=== PATIENT | male | born 1945 | race Caucasian/White ===

== ENCOUNTER 2016-11-15 16:22 | Inpatient (IN) | payer OTHER, MEDICARE ==
[~2016-11-15] VITALS: Ht 182.9 cm; Wt 94.5 kg
[2016-11-20] MEDS ORDERED: POVIDONE IODINE 5% (ANTISEPSIS KIT) 4 APPLICATIONS EACH NARE PRN (06:45)
[2016-11-20] MEDS ORDERED: DEXAMETHASONE SOD PHOS 20 MG/5 ML VIAL IV PUSH SCH (06:45)
[2016-11-20] MEDS ORDERED: POVIDONE IODINE 7.5% SCRUB 118 ML BOTTLE TOPICAL SCH (06:45)
[2016-11-20] MEDS ORDERED: LACTATED RINGER'S 1000 ML IV PRN (06:45)
[2016-11-20] MEDS ORDERED: METOPROLOL TARTRATE 25 MG TAB PO PRN (06:45)
[2016-11-20] MEDS ORDERED: INSULIN HUMAN REGULAR 1,000 UNITS/10 ML VIAL SQ PRN (06:45)
[2016-11-20] MEDS ORDERED: CHLORHEXIDINE GLUCONATE 4% SOLN 120 ML BTL TOPICAL SCH (06:45)
[2016-11-20] MEDS ORDERED: ceFAZolin 2 GM PREMIX 50 ML IV SCH (06:45)
[2016-11-20] MEDS ORDERED: CHLORHEXIDINE GLUCONATE 2 % 1 PACK (2 CLOTHS) TOPICAL PRN (06:45)
[2016-11-20] MEDS ORDERED: SODIUM CHLORID 0.9% 500 ML IV PRN (06:45)
[2016-11-20] MEDS ORDERED: ZOLPIDEM TARTRATE 5 MG TAB PO PRN (07:00)
[2016-11-20] MEDS ORDERED: Post-op Orders (for Pharmacy) MISC XX ONE (07:00)
[2016-11-20] MEDS ORDERED: MORPHINE SULFATE 4 MG/ML INJ IV PUSH PRN (07:00)
[2016-11-20] MEDS ORDERED: ONDANSETRON HCL 4 MG/2 ML VIAL IVP PRN (07:00)
[2016-11-20] MEDS ORDERED: BISACODYL 10 MG SUPP RECTAL PRN (07:00)
[2016-11-20] MEDS ORDERED: ALUMINUM/MAGNESIUM/SIMETH 30 ML CUP PO PRN (07:00)
[2016-11-20] MEDS ORDERED: NALOXONE HCL 0.4 MG/ML AMP IV PRN (07:00)
[2016-11-20] MEDS ORDERED: diphenhydrAMINE HCL 50 MG/ML VIAL IV PRN (07:00)
[2016-11-20] MEDS ORDERED: HYDR-3288 PO (07:02)
[2016-11-20] MEDS ORDERED: ASPI81CH37 CHEW (07:02)
[2016-11-20 07:56] VITALS: BP 141/80; PULSE 69; RESP 18; TEMP 98.5; O2SAT 96
[2016-11-20] MEDS ORDERED: SODIUM CHLORIDE 0.9% FLUSH 10 ML FLUSH IV FLUSH PRN (08:00)
[2016-11-20] MEDS ORDERED: FENO145T2 PO (08:17)
[2016-11-20] MEDS ORDERED: BUPR75TA PO (08:17)
[2016-11-20] MEDS ORDERED: NIAC500T5 PO (08:17)
[2016-11-20] MEDS ORDERED: ASPI325T PO (08:17)
[2016-11-20] MEDS ORDERED: PANT40TA3 PO (08:17)
[2016-11-20] MEDS ORDERED: IPRAAER INH (08:17)
[2016-11-20] MEDS ORDERED: LOSA25TA PO (08:17)
[2016-11-20] MEDS ORDERED: ATOR40TA16 PO (08:17)
[2016-11-20] MEDS ORDERED: METO50TA PO (08:17)
[2016-11-20] MEDS ORDERED: GABA100C4 PO (08:17)
[2016-11-20] MEDS ORDERED: CYCL5TAB PO (08:17)
[2016-11-20] MEDS ORDERED: NITR0.4S SL (08:17)
[2016-11-20] MEDS ORDERED: GENTAMICIN SULFATE 80 MG/2 ML VIAL ONE (08:54)
[2016-11-20] MEDS: SODIUM CHLORIDE 0.9% FLUSH 10 ML FLUSH IV FLUSH SCH ×2 (09:00→21:31)
[2016-11-20] MEDS ORDERED: ACETAMINOPHEN 1000 MG/100 ML VIAL IV ONE (09:21)
[2016-11-20] MEDS ORDERED: MIDAZOLAM HCL 2 MG/2 ML VIAL ONE (09:21)
[2016-11-20] MEDS ORDERED: FAMOTIDINE 20 MG/2 ML VIAL ONE (09:22)
[2016-11-20] MEDS ORDERED: TRANEXAMIC PERI-ARTICULAR 3,000 MG/NS 100 ML P-ARTICULR SCH ×2 (10:00)
[2016-11-20] MEDS ORDERED: ROPIVACAINE 0.5% PF INJ 30 ML VIAL NERV BLOCK ONE (10:27)
[2016-11-20] MEDS ORDERED: VANCOMYCIN HCL 1000 MG VIAL ONE (10:42)
[2016-11-20] MEDS ORDERED: ONDANSETRON HCL 4 MG/2 ML VIAL IV PUSH ONE (12:00)
[2016-11-20] MEDS ORDERED: LACTATED RINGER'S 1000 ML INJ 1,000 ML IV ONE (12:00)
[2016-11-20] MEDS ORDERED: PROPOFOL 200 MG/20 ML AMP IV ONE (12:00)
[2016-11-20] MEDS ORDERED: PHENYLEPH/NS 1000 MCG/10 ML SYR IV ONE (12:00)
[2016-11-20] MEDS ORDERED: NEOSTIGMINE 3 MG/3 ML SYR IV ONE (12:00)
[2016-11-20] MEDS ORDERED: DO NOT ADM ANY ANTICOAGULANT DRUGS PRN (13:07)
[2016-11-20] MEDS: SODIUM CHLOR 0.9% 1000 ML INJ 1,000 ML IV SCH ×2 (13:15→18:00)
[2016-11-20] MEDS ORDERED: fentaNYL CITRATE 250 MCG/5 ML AMP ONE (13:24)
[2016-11-20] MEDS ORDERED: *morphine SULFATE 8 MG/ML PERIprocedure ONLY ONE (14:10)
--- NOTE | 2016-11-20 15:01 | RADRPT ---
EXAM DATE/TIME: 11/20/2016 13:32 [place] COMPARISON: No previous studies available for comparison. INDICATIONS : Post op right shoulder surgery. MEDICAL HISTORY : None. SURGICAL HISTORY : None. ENCOUNTER: Initial ACUITY: 1 day PAIN SCORE: 10/10 LOCATION: Right shoulder FINDINGS: A two-view examination right shoulder was obtained and demonstrates the patient is status post right shoulder arthroplasty. The alignment is anatomic. There is overlying soft tissue swelling. CONCLUSION: Expected postoperative change status post arthroplasty. Robby Calderon MD on November 20, 2016 at 14:59 Board Certified Radiologist. This report was verified electronically.
[2016-11-20 16:05] VITALS: BP 124/83; PULSE 76; RESP 18; TEMP 95.4; O2SAT 96
--- NOTE | 2016-11-20 16:36 | PD.CONS ---
HPI Service [facility] Consult Requested By Orthopedist Dr. David Castle Reason for Consult Assist with Medical management Primary Care Physician Dr. 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 Tin Hernandez. Patient seen and examined today. Reports continues to have pain on the right shoulder. Rated 8/10, sharp, constant, aggravated by movement, relieved with pain medication given to him. Otherwise, denies pain and discomfort. Denies SOB/ dyspnea. Denies chest pain, palpitations, headaches, dizziness. Denies fevers, chills, n/v/d. Denies hematuria, dysuria. Review of Systems Except as stated in HPI: all other systems reviewed are Neg Past Family Social History Allergies: Coded Allergies: Ethyl Alcohol (Verified Allergy, Severe, 09/22/04) Ketorolac (Verified Allergy, Severe, 09/22/04) Contrast Media (Verified Allergy, Unknown, 11/20/16) Past Medical History CAD Carotid stenosis PVD GERD HTN HLD Restless leg Past Surgical History CABG 2 Right carotid endarterectomy Left BKA secondary to PVD Reported Medications Reported Meds & Active Scripts Active Aspirin Low Dose (Aspirin) 81 Mg Chew 81 Mg CHEW BID [place] (Hydrocodone-Acetaminophen) 7.5-325 mg Tab 1-2 Tab PO Q6H PRN Reported Combivent Respimat Inh (Ipratropium-Albuterol Inh) 20-100 Nursing Home/Act Aero 1 Puff INH QID PRN Nitrostat SL (Nitroglycerin) 0.4 Mg Subl 0.4 Mg SL DIRECTED PRN 1 tablet under the tongue as needed for chest pain. Repeat every 5 minutes for a total of 3 DOSES or call 911 if NO relief. Pantoprazole (Pantoprazole Sodium) 40 Mg Tab 40 Mg PO DAILY Fenofibrate 145 Mg Tab 145 Mg PO DAILY Losartan (Losartan Potassium) 25 Mg Tab 25 Mg PO DAILY Bupropion HCl 75 Mg Tab 75 Mg PO BID Flexeril (Cyclobenzaprine HCl) 5 Mg Tab 5 Mg PO HS Metoprolol Tartrate 50 Mg Tab 50 Mg PO BID Gabapentin 100 Mg Cap 100 Mg PO BID Niacin 500 Mg Tab 500 Mg PO DAILY Aspirin 325 Mg Tab 325 Mg PO DAILY Atorvastatin (Atorvastatin Calcium) 40 Mg Tab 40 Mg PO HS Active Ordered Medications Current Medications Medications (Trade) Dose Ordered Sig/Milka Route Start Time Stop Time Status Last Admin Lactated Ringer's 1,000 ml @ 30 mls/hr Q24H PRN IV 11/20/16 06:45 11/23/16 06:44 11/20/16 08:10 (NS 500 ml Inj) 500 ml @ 30 mls/hr [id number] PRN IV 11/20/16 06:45 11/23/16 06:44 (Betadine 7.5% Scrub) 1 applic ONCE TOPICAL 11/20/16 06:45 11/23/16 06:44 11/20/16 07:45 Chlorhexidine Gluconate 1 applic 1 applic ONCE TOPICAL 11/20/16 06:45 11/23/16 06:44 (Cyklokapron Inj/ NS Inj) 130 ml @ 260 mls/hr ONCE P-ARTICULR 11/20/16 10:00 11/20/16 21:00 11/20/16 11:02 Dexamethasone Sodium Phosphate 10 mg 10 mg ONCE IV PUSH 11/20/16 06:45 11/20/16 21:00 11/20/16 08:00 (NS 1000 ml Inj) 1,000 ml @ 100 mls/hr Q10H IV 11/20/16 08:00 11/20/16 13:15 (NS Flush) 2 ml UNSCH PRN IV FLUSH 11/20/16 08:00 Sodium Chloride 2 ml 2 ml BID IV FLUSH 11/20/16 09:00 (Ancef Inj/NS Inj) 100 ml @ 200 mls/hr Q6H IV 11/20/16 15:00 11/21/16 03:29 11/20/16 14:28 (Lovenox Inj) 30 mg Q24H SQ 11/21/16 01:00 (Morphine Inj) 3 mg Q3H PRN IV PUSH 11/20/16 07:00 ([place] 7.5-325 Mg) 1 tab Q4H PRN PO 11/20/16 07:00 ([place] 7.5-325 Mg) 2 tab Q4H PRN PO 11/20/16 07:00 (Theragran M Tab) 1 tab BID PO 11/21/16 21:00 01/20/17 20:59 (Zofran Inj) 4 mg Q6H PRN IVP 11/20/16 07:00 (Colace) 100 mg BID PO 11/21/16 21:00 (Mag-Al Plus Susp Liq) 30 ml Q6H PRN PO 11/20/16 07:00 (Ambien) 5 mg HS PRN PO 11/20/16 07:00 (Dulcolax Supp) 10 mg DAILY PRN RECTAL 11/20/16 07:00 (Narcan Inj) 0.4 mg UNSCH PRN IV 11/20/16 07:00 (Benadryl Inj) 25 mg Q6H PRN IV 11/20/16 07:00 Miscellaneous Information ALL NURSING DEPARTME... UNSCH PRN .XX 11/20/16 13:07 11/21/16 13:06 Family History Dad has permanent pacemaker Social History Denies alcohol use Former smoker, quit about 13-14 years ago, smoked for 50 years, 10 years of 50 years 4 packs per day Denies any illicit drug use Physical Exam Vital Signs Vital Signs Date Time Temp Pulse Resp B/P Pulse Ox O2 Delivery O2 Flow Rate FiO2 11/20/16 15:30 98.1 72 14 114/63 97 Nasal Cannula 2 11/20/16 15:15 75 14 109/61 97 Nasal Cannula 2 11/20/16 15:00 71 14 100/57 94 Nasal Cannula 2 11/20/16 14:45 71 14 101/56 94 Nasal Cannula 2 11/20/16 14:30 70 14 94/54 94 Nasal Cannula 2 11/20/16 14:15 69 14 87/53 94 Nasal Cannula 2 11/20/16 14:00 73 14 92/55 94 Nasal Cannula 2 11/20/16 13:45 72 14 89/55 94 Nasal Cannula 2 11/20/16 13:30 74 14 93/52 94 Nasal Cannula 4 11/20/16 13:15 71 14 89/50 94 Nasal Cannula 4 11/20/16 13:11 97.4 78 14 90/65 95 Nasal Cannula 4 11/20/16 07:56 98.5 69 18 141/80 96 Physical Exam GENERAL: This is a well-nourished, well-developed patient, in no apparent distress. SKIN: No rashes, ecchymoses or lesions. Warm and dry. HEAD: Atraumatic. Normocephalic. No temporal or scalp tenderness. EYES: Pupils equal round and reactive. No scleral icterus. No injection or drainage. ENT: Nose without bleeding. Throat without erythema. Uvula midline. Airway patent. NECK: Trachea midline. No JVD or lymphadenopathy. Supple, nontender, no meningeal signs. CARDIOVASCULAR: Regular rate and rhythm without murmurs, gallops, or rubs. RESPIRATORY: Clear to auscultation. Breath sounds equal bilaterally. No wheezes , rales, or rhonchi. GASTROINTESTINAL: Abdomen soft, non-tender, nondistended. Bowel sounds hypoactive MUSCULOSKELETAL: Extremities without clubbing, cyanosis, or edema. Left BKA, Emily status at the bedside. Right shoulder incision site clean dry and intact. NEUROLOGICAL: Awake and alert. Oriented to place, self, time. Motor and sensory grossly within normal limits. Normal speech. Laboratory Laboratory Tests Test 11/20/16 07:50 Blood Type A POSITIVE Antibody Screen NEGATIVE Blood Bank Comment Imaging Last Impressions Shoulder X-Ray 11/20/16 0000 Signed Impressions: Service Date/Time: Sunday, November 20, 2016 13:32 - CONCLUSION: Expected postoperative change status post arthroplasty. 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 Tin Hernandez. Status post right shoulder arthroplasty - Pain management - OT/PT managed by primary team CAD, CABG x2 HTN - Start home medication aspirin 81 mg daily when DC - not on plavix - Continue home medication metoprolol 50 mg twice a day, losartan 25 mg daily - Hold parameters, in PACU patient had an episode of low BP possibly secondary to anesthesia use. As per review records, patient is in the 140s to 150s as baseline, decrease BP with metoprolol use to 107 - Monitor BP trend HLD - Restart atorvastatin 40mg daily, niacin 500 mg, gemfibrozil 600 mg PVD, neuropathy - Gabapentin DVT prop Lovenox 30 mg daily Thank you for this consultation. We will follow patient with you. Written by Madi Fierro, acting as scribe for Dr. Lopez on 11/20/16 at 15:38. This note was transcribed by rex HOLLINS. I, Dr. Gloria Lopez personally performed the history, physical exam, and medical decision making; and confirmed the accuracy of the information in the transcribed note. Authenticated by Dr. Gloria Lopez on 11/20/16 at 15:38. Code Status Full code Discussed Condition With Patient, nursing Madi Douglas November 20, 2016 16:36 Gloria Lopez MD November 20, 2016 18:17
[2016-11-20] MEDS: ACETAMINOPHEN/HYDROcodone 325 MG/7.5 MG TAB PO PRN ×2 (17:18→21:32)
[2016-11-20 17:29] VITALS: O2SAT 96
[2016-11-20] MEDS ORDERED: IPRATROPIUM ALBUTEROL INH PRN (18:00)
[2016-11-20 19:59] VITALS: BP 119/75; PULSE 90; RESP 16; TEMP 97.2; O2SAT 93
[2016-11-20] MEDS: ATORVASTATIN 40 MG TAB PO SCH (21:30)
[2016-11-20] MEDS: METOPROLOL TARTRATE 50 MG TAB PO SCH (21:30)
[2016-11-20] MEDS: GABAPENTIN 100 MG CAP PO SCH (21:30)
[2016-11-20] MEDS: buPROPion HCL 75 MG TAB PO SCH (21:31)
[2016-11-21] VITALS (7 sets, daily range): BP systolic 93–130; BP diastolic 55–81; PULSE 71–91; RESP 16–18; TEMP 95.8–98.2; O2SAT 92–94
[2016-11-21] MEDS: ENOXAPARIN SODIUM 30 MG/0.3 ML SYRINGE SQ SCH (01:55)
[2016-11-21] MEDS: ACETAMINOPHEN/HYDROcodone 325 MG/7.5 MG TAB PO PRN ×4 (02:01→20:14)
[2016-11-21] MEDS: SODIUM CHLOR 0.9% 1000 ML INJ 1,000 ML IV SCH ×3 (04:00→21:43)
[2016-11-21 07:49] LABS: HEMATOCRIT 44.3 % (39.0-51.0); MEAN CELL VOLUME 88.7 FL (80.0-100.0); MEAN CORPUSCULAR HEMOGLOBIN 28.5 PG (27.0-34.0); MEAN CORPUSCULAR HGB CONC 32.2 % (32.0-36.0); PLATELET COUNT 214 TH/MM3 (150-450); RED BLOOD COUNT 4.99 MIL/MM3 (4.50-5.90); RED CELL DISTRIBUTION WIDTH 13.2 % (11.6-17.2); REVIEW FLAG FINAL; WHITE BLOOD COUNT 17.4 TH/MM3 (4.0-11.0)
[2016-11-21 08:20] LABS: BICARBONATE 23.1 MEQ/L (21.0-32.0); POTASSIUM 4.5 MEQ/L (3.5-5.1)
[2016-11-21] MEDS: SODIUM CHLORIDE 0.9% FLUSH 10 ML FLUSH IV FLUSH SCH ×2 (08:42→20:15)
[2016-11-21] MEDS: PANTOPRAZOLE SOD 40 MG DELAYED RELEASE TAB PO SCH (08:42)
[2016-11-21] MEDS: GABAPENTIN 100 MG CAP PO SCH ×2 (08:42→20:13)
[2016-11-21] MEDS: FENOFIBRATE 145 MG TAB PO SCH (08:42)
[2016-11-21] MEDS: buPROPion HCL 75 MG TAB PO SCH ×2 (08:43→20:13)
[2016-11-21] MEDS: METOPROLOL TARTRATE 50 MG TAB PO SCH ×2 (08:45→20:14)
[2016-11-21] MEDS ORDERED: LOSARTAN 25 MG TAB PO SCH (09:00)
--- NOTE | 2016-11-21 09:09 | PD.ORT.PN ---
Subjective Post Op Day #: 1 Subjective Remarks painful shoulder Objective Vitals Vital Signs Date Time Temp Pulse Resp B/P Pulse Ox O2 Delivery O2 Flow Rate FiO2 11/21/16 08:54 93 21 11/21/16 04:18 97.7 86 16 130/81 92 11/21/16 00:00 98.2 91 17 108/70 94 11/20/16 19:59 97.2 90 16 119/75 93 11/20/16 17:29 96 21 11/20/16 16:05 95.4 76 18 124/83 96 11/20/16 15:30 98.1 72 14 114/63 97 Nasal Cannula 2 11/20/16 15:15 75 14 109/61 97 Nasal Cannula 2 11/20/16 15:00 71 14 100/57 94 Nasal Cannula 2 11/20/16 14:45 71 14 101/56 94 Nasal Cannula 2 11/20/16 14:30 70 14 94/54 94 Nasal Cannula 2 11/20/16 14:15 69 14 87/53 94 Nasal Cannula 2 11/20/16 14:00 73 14 92/55 94 Nasal Cannula 2 11/20/16 13:45 72 14 89/55 94 Nasal Cannula 2 11/20/16 13:30 74 14 93/52 94 Nasal Cannula 4 11/20/16 13:15 71 14 89/50 94 Nasal Cannula 4 11/20/16 13:11 97.4 78 14 90/65 95 Nasal Cannula 4 I/O 11/20/16 11/20/16 11/20/16 11/21/16 11/21/16 11/21/16 07:00 15:00 23:00 07:00 15:00 23:00 Intake Total 800 ml 480 ml 480 ml Output Total 200 ml 500 ml 450 ml Balance 600 ml -20 ml 30 ml Intake Oral 480 ml 480 ml Other 800 ml Output Urine Total 500 ml 450 ml Estimated Blood Loss 200 ml Result Diagram: 11/21/16 0711 11/21/16 0711 Objective Remarks in bed, nad dressing c/d/i sling in place nvi subjecting numbness in thumb. 2+ radial pulse Assessment & Plan Ortho Post Op Day #: 1 Problem List: Assessment and Plan s/p R TSA daily dressing changes lovenox ROM - no external rotation PT d/c planning home with [facility] and pt f/up dr. jaeger 2 weeks Tin Daniels November 21, 2016 09:09
--- NOTE | 2016-11-21 09:11 | HHI.DCPOC ---
Discharge Care Plan Diagnosis: (1) Primary localized osteoarthrosis of shoulder region (2) Status post right shoulder hemiarthroplasty Your Health Problems Are: Difficulty with ADL Goals to Promote Your Health * To prevent worsening of your condition and complications * To maintain your health at the optimal level Directions to Meet Your Goals Take your medications as prescribed Follow your dietary instruction Follow activity as directed Keep your appointments as scheduled Take your immunizations and boosters as scheduled If your symptoms worsen call your PCP, if no PCP go to Urgent Care Center or Emergency Room Smoking is Dangerous to Your Health. Avoid second hand smoke Call the 24-hour hour crisis hotline for domestic abuse at Tin Daniels November 21, 2016 09:11
--- NOTE | 2016-11-21 09:12 | HHI.FF ---
Face to Face Verification Diagnosis: (1) Status post right shoulder hemiarthroplasty (2) Primary localized osteoarthrosis of shoulder region Physical Therapy Safety evaluation Occupational Therapy Right UE Weight Bearing: Non WB Right UE Range of Motion: Active Assistive ROM Nursing RN: 3 days/week x 2 weeks Nursing: Dressing changes Dressing Changes: Daily dressing change I have seen patient Min Wilks on 11/21/16. My clinical findings support the need for the requested home health care services because: Limited ability to care for self High risk of falls I certify that my clinical findings support that this patient is homebound because: Post-op weakness Unsteady gait/balance Tin Daniels November 21, 2016 09:12
--- NOTE | 2016-11-21 09:15 | HHI.PR ---
Subjective Remarks Has some shoulder pain, however pain is controlled by medications. No fever or chills. No nausea or vomiting. Satting well on room air. Objective Vitals Vital Signs Date Time Temp Pulse Resp B/P Pulse Ox O2 Delivery O2 Flow Rate FiO2 11/21/16 08:54 93 21 11/21/16 04:18 97.7 86 16 130/81 92 11/21/16 00:00 98.2 91 17 108/70 94 11/20/16 19:59 97.2 90 16 119/75 93 11/20/16 17:29 96 21 11/20/16 16:05 95.4 76 18 124/83 96 11/20/16 15:30 98.1 72 14 114/63 97 Nasal Cannula 2 11/20/16 15:15 75 14 109/61 97 Nasal Cannula 2 11/20/16 15:00 71 14 100/57 94 Nasal Cannula 2 11/20/16 14:45 71 14 101/56 94 Nasal Cannula 2 11/20/16 14:30 70 14 94/54 94 Nasal Cannula 2 11/20/16 14:15 69 14 87/53 94 Nasal Cannula 2 11/20/16 14:00 73 14 92/55 94 Nasal Cannula 2 11/20/16 13:45 72 14 89/55 94 Nasal Cannula 2 11/20/16 13:30 74 14 93/52 94 Nasal Cannula 4 11/20/16 13:15 71 14 89/50 94 Nasal Cannula 4 11/20/16 13:11 97.4 78 14 90/65 95 Nasal Cannula 4 I/O 11/20/16 11/20/16 11/20/16 11/21/16 11/21/16 11/21/16 06:59 14:59 22:59 06:59 14:59 22:59 Intake Total 800 ml 480 ml 480 ml Output Total 200 ml 500 ml 450 ml Balance 600 ml -20 ml 30 ml Intake Oral 480 ml 480 ml Other 800 ml Output Urine Total 500 ml 450 ml Estimated Blood Loss 200 ml Result Diagram: 11/21/16 0711 11/21/16 0711 Imaging Last Impressions Shoulder X-Ray 11/20/16 0000 Signed Impressions: Service Date/Time: Sunday, November 20, 2016 13:32 - CONCLUSION: Expected postoperative change status post arthroplasty. Robby Calderon MD Objective Remarks GENERAL: This is a well-nourished, well-developed patient, in no apparent distress. SKIN: No rashes, ecchymoses or lesions. Warm and dry. HEAD: Atraumatic. Normocephalic. No temporal or scalp tenderness. EYES: Pupils equal round and reactive. No scleral icterus. No injection or drainage. ENT: Nose without bleeding. Throat without erythema. Uvula midline. Airway patent. NECK: Trachea midline. No JVD or lymphadenopathy. Supple, nontender, no meningeal signs. CARDIOVASCULAR: Regular rate and rhythm without murmurs, gallops, or rubs. RESPIRATORY: Clear to auscultation. Breath sounds equal bilaterally. No wheezes , rales, or rhonchi. GASTROINTESTINAL: Abdomen soft, non-tender, nondistended. Bowel sounds hypoactive MUSCULOSKELETAL: Extremities without clubbing, cyanosis, or edema. Left BKA, Emily status at the bedside. Right shoulder incision site clean dry and intact. NEUROLOGICAL: Awake and alert. Oriented to place, self, time. Motor and sensory grossly within normal limits. Normal speech. 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 Tin Hernandez. Status post right shoulder arthroplasty - Pain management - OT/PT managed by primary team Dehydration. HE Cr 1.4, however unknown baseline kidney indices. Start IVF. Hold losartan. Monitor kidney indices. Add hydralazine PRN if high BP. Leukocytosis. Likely 2/2 dehydration. On IVF. No fevers , no signs of infection. CAD, CABG x2 HTN - Start home medication aspirin 81 mg daily when DC - not on plavix - Continue home medication metoprolol 50 mg twice a day, losartan 25 mg daily - Hold parameters, in PACU patient had an episode of low BP possibly secondary to anesthesia use. As per review records, patient is in the 140s to 150s as baseline, decrease BP with metoprolol use to 107 - Monitor BP trend HLD - Restart atorvastatin 40mg daily, niacin 500 mg, gemfibrozil 600 mg PVD, neuropathy - Gabapentin DVT prop Lovenox 30 mg daily Thank you for this consultation. We will follow patient with you. Code Status Full code Discussed Condition With Patient, nurse Gloria Lopez MD November 21, 2016 09:15
[2016-11-21] MEDS ORDERED: hydrALAZINE HCL 10 MG TAB PO PRN (09:30)
--- NOTE | 2016-11-21 11:49 | MP ---
cc: ELISEO MATTA DATE OF SURGERY: 11/20/2016 PREOPERATIVE DIAGNOSIS: Right shoulder osteoarthritis. POSTOPERATIVE DIAGNOSIS: Right shoulder osteoarthritis. OPERATION: Right total shoulder arthroplasty. SURGEON Dr. Eliseo Matta CENTRAL OFFICE WORKER: GURVINDER Zepeda ANESTHESIA General with an interscalene block. BLOOD LOSS 100 cc COMPLICATIONS None. IMPLANTS: Arthrex size 8 humeral component, size medium glenoid component size 48 x 19 humeral head. JUSTIFICATION: This patient is a 71-year-old male who has increased in breath or pain and developed severe osteoarthritis involving the right shoulder. He has significant pain with activities limitation of motion and pain interferes with activities of daily living. He has failed extensive nonoperative treatment including medications therapy injections, activity modification. X-ray of her shoulder reveal severe osteoarthritis with the joint space narrowing, subchondral sclerosis, subchondral cyst osteophyte formation. He has a history of a remote proximal humerus fracture. The patient was counseled as to the risks, benefits and alternatives to a total shoulder arthroscopy. The risks were discussed and included but are not limited anesthesia, bleeding, infection damage to nerves, blood vessels, fracture-dislocation, blood clots, continued pain, stiffness. The patient had asked appropriate questions which have been answered and he did wish to proceed with surgery, he favored benefits over the risks. The procedure in detail, A written consent was obtained. The patient identified by name, taken to the operating room and placed supine on table. He underwent scalene block anesthesia administered right upper extremity by the anesthesiologist. General anesthesia was administered as well as 2 grams of IV Ancef and 1 gram of IV vancomycin. The patient carefully placed in a beach-chair position. All bony pounds and pressure as well padded. The patient neck was carefully monitored and neutral. The right shoulder right upper extremity prepped and draped using isopropyl alcohol, Hibiclens solution and Chloraprep solution. After a time-out was performed a large incision made over the anterior aspect of right shoulder. The deltopectoral interval was explored the conjoined tendon was retracted medially and the subscapularis tendon was incised near its insertion on the left tuberosity. This was tacked with multiple FiberWire sutures and the osteoarthritic femoral head was dislocated. A rongeur was used to remove multiple osteophytes. A guidewire was used to gain entrance into the intramedullary canal of the humerus. Subsequently a humeral resection guide was placed and the guide was set to remove the humeral cut at 30 degrees of retroversion. An oscillating saw was used to perform the humeral cut. An intramedullary broach handle was then used to gain entrance into the intramedullary canal humerus was followed by sequential broaching up to size eight. Attention was turned to the glenoid where the capsule was released off the anterior and inferior aspects to allow for further exposure a size medium glenoid trial was placed and a center guidepin was placed. A cannulated reamer was then placed over the guide pin. The guide was then placed for the superior and inferior drill holes. Prior to placement of the drill holes. The bladder itself was reamed. The shoulder joint was irrigated with sterile saline pulse lavage antibiotic solution. Subsequently the final glenoid component was then cemented in place with excellent press fit. A size eight humeral component was then press fit and the variable neck angle was locked in place. Trial head combination were evaluated. The final size 48 x 19 head was placed. With this trial of the shoulder be reduced adequately and showed good stability throughout range of motion. Shoulder was then thoroughly irrigated sterile saline solution. There is no significant undue instability upon examination. At this point the subscapularis tendon was repaired with multiple horizontal mattress #2 FiberWire sutures. The subscapularis repair was then further imbricated with a #1 running Vicryl suture. The shoulder was again thoroughly irrigated sterile saline solution and the subcutaneous layer was then closed with 2-0 Vicryl sutures. Skin was closed Dermabond. Sterile dressing applied. The patient placed in sling and swath immobilizer. He tolerated the procedure with no intraoperative complications noted. Mele Daniels physician assistant manager retail was present during the entire procedure to include patient positioning procedure. The medical necessity of a physician assistant manager retail was indicated due to complexity assisted with appropriate manipulation of the arm and also traction of muscle tendon bone neurovascular structure. He assisted with preparation of bone and also implantation of the prosthetic replacement. MD ERLIN Izquierdo/minesh /12:41 PM /10:40 AM
[2016-11-21] MEDS: ATORVASTATIN 40 MG TAB PO SCH (20:11)
[2016-11-21] MEDS: DOCUSATE SODIUM 100 MG CAP PO SCH (20:12)
[2016-11-21] MEDS: MULTIVITAMINS/MINERALS THERAPEUTIC TAB PO SCH (20:12)
[2016-11-21] MEDS ORDERED: NIACIN 500 MG EXTENDED RELEASE TAB PO SCH (21:00)
[2016-11-22] VITALS: BP 105/66; PULSE 81; RESP 16; TEMP 97.1; O2SAT 94
[2016-11-22] MEDS: ENOXAPARIN SODIUM 30 MG/0.3 ML SYRINGE SQ SCH (00:04)
[2016-11-22] MEDS: ACETAMINOPHEN/HYDROcodone 325 MG/7.5 MG TAB PO PRN ×3 (00:04→09:21)
[2016-11-22 06:42] LABS: HEMATOCRIT 40.6 % (39.0-51.0); MEAN CELL VOLUME 87.5 FL (80.0-100.0); MEAN CORPUSCULAR HEMOGLOBIN 29.5 PG (27.0-34.0); MEAN CORPUSCULAR HGB CONC 33.8 % (32.0-36.0); PLATELET COUNT 191 TH/MM3 (150-450); RED BLOOD COUNT 4.64 MIL/MM3 (4.50-5.90); RED CELL DISTRIBUTION WIDTH 13.8 % (11.6-17.2); REVIEW FLAG FINAL; WHITE BLOOD COUNT 9.7 TH/MM3 (4.0-11.0)
[2016-11-22 06:54] LABS: BICARBONATE 24.2 MEQ/L (21.0-32.0); POTASSIUM 4.3 MEQ/L (3.5-5.1)
[2016-11-22 08:00] VITALS: BP 144/78; PULSE 78; RESP 18; TEMP 96; O2SAT 92
--- NOTE | 2016-11-22 08:40 | PD.ORT.PN ---
Subjective Post Op Day #: 2 Subjective Remarks painful shoulder. controlled with pain meds. Objective Vitals Vital Signs Date Time Temp Pulse Resp B/P Pulse Ox O2 Delivery O2 Flow Rate FiO2 11/22/16 08:00 96.0 78 18 144/78 92 11/22/16 00:00 97.1 81 16 105/66 94 11/21/16 20:00 96.9 75 17 102/58 93 11/21/16 16:00 96.0 71 18 102/55 94 11/21/16 12:00 95.8 78 18 97/66 93 11/21/16 08:54 93 21 I/O 11/21/16 11/21/16 11/21/16 11/22/16 11/22/16 11/22/16 07:00 15:00 23:00 07:00 15:00 23:00 Intake Total 480 ml 1080 ml 360 ml Output Total 450 ml 400 ml 400 ml Balance 30 ml 680 ml -40 ml Intake Oral 480 ml 1080 ml 360 ml Output Urine Total 450 ml 400 ml 400 ml # Voids 2 # Bowel Movements 0 Result Diagram: 11/22/16 0535 11/22/16 0535 Objective Remarks sitting on bedside, nad, eating incision no erythema, no drainage sling in place nvi subjecting numbness in thumb. 2+ radial pulse Assessment & Plan Ortho Post Op Day #: 2 Problem List: Assessment and Plan s/p R TSA daily dressing changes lovenox ROM - no external rotation PT d/c planning home with [facility] and pt - cleared for d/c f/up dr. jaeger 2 weeks Tin Daniels November 22, 2016 08:40
[2016-11-22] MEDS: buPROPion HCL 75 MG TAB PO SCH (09:00)
--- NOTE | 2016-11-22 09:05 | HHI.PR ---
Subjective Remarks Feels much better. Denies having any pain at this time. He has however pain with movement. No fever or chills. Denies chest pain, nausea, vomiting diarrhea or constipation. Plan to go home today. Objective Vitals Vital Signs Date Time Temp Pulse Resp B/P Pulse Ox O2 Delivery O2 Flow Rate FiO2 11/22/16 08:00 96.0 78 18 144/78 92 11/22/16 00:00 97.1 81 16 105/66 94 11/21/16 20:00 96.9 75 17 102/58 93 11/21/16 16:00 96.0 71 18 102/55 94 11/21/16 12:00 95.8 78 18 97/66 93 I/O 11/21/16 11/21/16 11/21/16 11/22/16 11/22/16 11/22/16 07:00 15:00 23:00 07:00 15:00 23:00 Intake Total 480 ml 1080 ml 360 ml Output Total 450 ml 400 ml 400 ml Balance 30 ml 680 ml -40 ml Intake Oral 480 ml 1080 ml 360 ml Output Urine Total 450 ml 400 ml 400 ml # Voids 2 # Bowel Movements 0 Result Diagram: 11/22/16 0535 11/22/16 0535 Imaging Last Impressions Shoulder X-Ray 11/20/16 0000 Signed Impressions: Service Date/Time: Sunday, November 20, 2016 13:32 - CONCLUSION: Expected postoperative change status post arthroplasty. Robby Calderon MD Objective Remarks GENERAL: This is a well-nourished, well-developed patient, in no apparent distress. SKIN: No rashes, ecchymoses or lesions. Warm and dry. HEAD: Atraumatic. Normocephalic. No temporal or scalp tenderness. EYES: Pupils equal round and reactive. No scleral icterus. No injection or drainage. ENT: Nose without bleeding. Throat without erythema. Uvula midline. Airway patent. NECK: Trachea midline. No JVD or lymphadenopathy. Supple, nontender, no meningeal signs. CARDIOVASCULAR: Regular rate and rhythm without murmurs, gallops, or rubs. RESPIRATORY: Clear to auscultation. Breath sounds equal bilaterally. No wheezes , rales, or rhonchi. GASTROINTESTINAL: Abdomen soft, non-tender, nondistended. Bowel sounds hypoactive MUSCULOSKELETAL: Extremities without clubbing, cyanosis, or edema. Left BKA, Emily status at the bedside. Right shoulder incision site clean dry and intact. NEUROLOGICAL: Awake and alert. Oriented to place, self, time. Motor and sensory grossly within normal limits. Normal speech. 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 Tin Hernandez. Status post right shoulder arthroplasty - Pain management - OT/PT managed by primary team Dehydration. HE Cr 1.4, however unknown baseline kidney indices. Continue IVF. Encouraged PO hydration. Hold losartan. Monitor kidney indices. Add hydralazine PRN if high BP. Kidney function improved significantly. Monitor. Can restart losartan at home. Leukocytosis. Likely 2/2 dehydration/ volume contraction. On IVF. No fevers , no signs of infection. WBC back to normal. Monitor. CAD, CABG x2 HTN - Start home medication aspirin 81 mg daily when DC - not on plavix - Continue home medication metoprolol 50 mg twice a day, losartan 25 mg daily - Hold parameters, in PACU patient had an episode of low BP possibly secondary to anesthesia use. As per review records, patient is in the 140s to 150s as baseline, decrease BP with metoprolol use to 107 - Monitor BP trend HLD - Restart atorvastatin 40mg daily, niacin 500 mg, gemfibrozil 600 mg PVD, neuropathy - Gabapentin DVT prop Lovenox 30 mg daily Thank you for this consultation. We will follow patient with you. Code Status Full code Discussed Condition With Patient, nurse Stable medically. Can be discharged from medical standpoint. Gloria Lopez MD November 22, 2016 09:05
[2016-11-22] MEDS: DOCUSATE SODIUM 100 MG CAP PO SCH (09:20)
[2016-11-22] MEDS: MULTIVITAMINS/MINERALS THERAPEUTIC TAB PO SCH (09:20)
[2016-11-22] MEDS: METOPROLOL TARTRATE 50 MG TAB PO SCH (09:20)
[2016-11-22] MEDS: PANTOPRAZOLE SOD 40 MG DELAYED RELEASE TAB PO SCH (09:21)
[2016-11-22] MEDS: FENOFIBRATE 145 MG TAB PO SCH (09:21)
[2016-11-22] MEDS: GABAPENTIN 100 MG CAP PO SCH (09:21)
[2016-11-22] MEDS: SODIUM CHLOR 0.9% 1000 ML INJ 1,000 ML IV SCH (09:24)
[2016-11-22] MEDS: SODIUM CHLORIDE 0.9% FLUSH 10 ML FLUSH IV FLUSH SCH (09:24)
--- NOTE | 2016-11-22 13:01 | MD ---
cc: ELISEO MATTA ADMISSION DATE: 11/20/2016 DISCHARGE DATE: 11/22/2016 ADMITTING DIAGNOSIS Severe degenerative osteoarthritis right shoulder DISCHARGE DIAGNOSIS Severe degenerative osteoarthritis right shoulder HISTORY OF PRESENT ILLNESS Mr. Wilks is a 71-year-old male who has been a patient at the [facility] for many years. Currently, he states his right shoulder pain is inhibiting his activities of daily living. The patient does have a history of right proximal humerus fracture many years ago which has healed. He has had severe progression of arthritis since this time. Currently, he states the pain is inhibiting his activities of daily living and he has a difficult time with range of motion. He states he has no alleviating factors at this point in time, although in the past, he has tried other medications, physical therapy, home exercise program and multiple corticosteroid injections in the right shoulder without long-lasting relief of symptoms. He does have x-ray evidence of severe degenerative osteoarthritis of the right shoulder. While in the office, the patient was counseled as to his diagnosis and treatment options. The risks, benefits, and indications were all discussed. The patient did elect proceed with surgical intervention to include a right total shoulder arthroplasty. DATE OF SURGERY 11/18/2016 PROCEDURE Right total shoulder arthroplasty. HOSPITAL COURSE Postop after surgery, the patient was then [facility] where he received appropriate medical management, pain control with DVT prophylaxis, as well as physical therapy. Discharge: Once being discharged from the hospital, the patient is cleared to go home where he will receive home health care and home physical therapy. He is in stable condition. The patient may ambulate as tolerated. He is to remain in a sling and swath in the right upper extremity. Patient has been instructed on a home exercise program as well and to limit his external rotation of the right shoulder. Patient has been provided prescriptions for pain control, as well as DVT prophylaxis and medications. The patient has also been provided a follow-up appointment in approximately two weeks from his date of surgery. The patient has asked appropriate questions which have been answered. The patient is in stable condition and is cleared for discharge. Dictated by GURVINDER Liao MD ERLIN Izquierdo/SHILOH /8:44 AM /12:49 PM
== END 2016-11-22 11:29 | disposition home health service (06) | DRG 483 ==
LOC: HSDI 11-20 06:02 → N06B 11-20 15:59
PROVIDERS: ADMIT Orthopaedic Surgery Sports Medicine; ATTEND Orthopaedic Surgery Sports Medicine
PROC: 3E0T3CZ (ICD-10-PCS; 2016-11-20)
PROC: 0RRJ0JZ Replacement of Right Shoulder Joint with Synthetic Substitute, Open Approach (ICD-10-PCS; principal; 2016-11-20 09:32)
DX: M19.011 Primary osteoarthritis, right shoulder (principal); N17.9 Acute kidney failure, unspecified; G62.9 Polyneuropathy, unspecified; E86.0 Dehydration; I10 Essential (primary) hypertension; I25.10 Atherosclerotic heart disease of native coronary artery without angina pectoris; D72.829 Elevated white blood cell count, unspecified; E78.5 Hyperlipidemia, unspecified; I73.9 Peripheral vascular disease, unspecified; K21.9 Gastro-esophageal reflux disease without esophagitis; G25.81 Restless legs syndrome; Z86.73 Personal history of transient ischemic attack (TIA), and cerebral infarction without residual deficits; Z79.82 Long term (current) use of aspirin; Z87.891 Personal history of nicotine dependence; Z89.512 Acquired absence of left leg below knee; Z95.1 Presence of aortocoronary bypass graft; Z91.041 Radiographic dye allergy status
CPT/HCPCS: 73030; 80048; 85027; 86850; 86900; 86901; 94150; C1776; J0131; J0690; J1100; J1580; J1650; J2250; J2270; J2370; J2405; J2710; J2795; J3010; J3370; J7030; J7120